=== PATIENT | female | born 1950 | race Caucasian/White ===

== ENCOUNTER 2017-12-24 14:58 | Emergency (ER) | payer MEDICARE ==
--- OUTSIDE RECORDS SUMMARY | 2017-12-24 17:32 | XMS REPORT ---
:1950 External Reference #:[id number] Author Organization [employer] Address [address] [place] [address] Phone [phone] Care Team Providers Name Role Phone Patient's Choice Care Team Information Restrooms Or Lounges Maid Unavailable Papo Villegas NP Primary Care Physician Unavailable Payers Type Date Identification Numbers Payment Provider Subscriber Commercial Effective: Policy Number: BS Yodit Patrick Escudero 2013 [id number] Expires: 2014 PayID: [id number] [address] [address] BRISA Guerra [address] [facility] Part B Expires: 2017 Policy Number: BS Facets Jaqui Escudero [id number] PayID: [id number] [address] [address] BRISA Guerra [address] [employer] Part B Policy Number: [id number] Medicare Jaqui Escudero PayID: [id number] [address] [place] [address] [employer] Part B Policy Number: [id number] [facility] Jaqui Escudero PayID: [id number] [address] [place] [address] Problems Date Description Provider Status Onset: 12/24/2014 Shavon Moody M.D. Active Family History Date Family Member(s) Problem(s) Comments General Lung Cancer Father due to Lung Cancer () Mother No Current Problems 85 Siblings 2 Sisters. Healthy. One with hypothyroidism. Social History Type Date Description Comments Lives With Occupation Retired Cigarette Use Quit 10 Years Ago Cigars Never Smoked Cigars Pipe Never Smoked A Pipe Smokeless Tobacco Never Used Smokeless Tobacco ETOH Use Currently consumes alcohol 7-10 drinks/week Smoking Patient is a former smoker Quit 2004 Daily Caffeine Consumes on average 3 cups of regular coffee per day Exercise Type/Frequency Exercises regularly Bike riding daily Golf 4-5x/week aerobic exercise 4-5x/week Allergies, Adverse Reactions, Alerts Date Description Reaction Status Severity Comments 01/15/2014 NKDA active Medications Medication Date Status Form Strength Qnty SIG Indications Ordering Provider No Active 05/31/20 Active Unknown Medications 17 Diclofenac 01/02/20 Hx Gel 1% 100gm apply 2 M25.561 Papo Villegas Sodium 17 - grams to ACTUARIAL ASSISTANT 05/17/20 affected 17 area twice daily No Active 01/16/20 Hx Dada Medications 14 - Ruparelia, 01/02/20 M.D. 17 Medications Administered in Office Medication Date Status Form Strength Qnty SIG Indications Ordering Provider Celestone 3 mg Administered Injection Freddy and 3mg 017 MD Joaquim Vital Signs Date Vital Result Comment 11/29/2017 Height 66.5 inches 5'6.50" Heart Rate 66 /min BP Systolic 108 mmHg BP Diastolic 86 mmHg Respiratory Rate 16 /min Pain Level 0 O2 % BldC Oximetry 98 % 05/31/2017 Height 66.5 inches 5'6.50" Weight 142.00 lb Heart Rate 72 /min BP Systolic Sitting 130 mmHg BP Diastolic Sitting 76 mmHg Respiratory Rate 12 /min Pain Level 0 BMI (Body Mass Index) 22.6 kg/m2 01/13/2017 Height 66.5 inches 5'6.50" Weight 146.00 lb BP Systolic 110 mmHg BP Diastolic 64 mmHg Body Temperature 98.7 F Pain Level 0 BMI (Body Mass Index) 23.2 kg/m2 01/01/2017 Height 66.5 inches 5'6.50" Weight 146.00 lb Heart Rate 70 /min BP Systolic Sitting 128 mmHg BP Diastolic Sitting 80 mmHg O2 % BldC Oximetry 99 % BMI (Body Mass Index) 23.2 kg/m2 11/30/2016 Height 66.5 inches 5'6.50" Heart Rate 86 /min BP Systolic 126 mmHg BP Diastolic 80 mmHg Respiratory Rate 12 /min no difficulties breathing Pain Level 0 O2 % BldC Oximetry 96 % 06/01/2016 Height 66.5 inches 5'6.50" Weight 142.00 lb BP Systolic Sitting 120 mmHg BP Diastolic Sitting 72 mmHg BMI (Body Mass Index) 22.6 kg/m2 01/15/2014 Weight 145.00 lb Heart Rate 78 /min BP Systolic Sitting 128 mmHg BP Diastolic Sitting 86 mmHg Results Test Date Test Result H/L Range Note Liver Function Panel 05/31/2017 Total Protein 7.2 g/dL 6.4-8.9 Albumin 4.3 g/dL 3.2-5.2 Globulin 2.9 g/dL 2-4 Albumin/Globulin Ratio 1.5 1-3 Total Bilirubin 1.10 mg/dL High 0.2-1.0 Direct Bilirubin 0.10 mg/dL 0.03-0.18 Indirect Bilirubin 1.0 mg/dL 0.3-1.0 Alkaline Phosphatase 69 U/L 34-104 Alt 15 U/L 7-52 Ast 19 U/L 13-39 Lipid Profile (Trig/Chol/HDL) 01/04/2017 Triglycerides 128 mg/dL 1 Cholesterol 262 mg/dL 2 HDL Cholesterol 70.0 mg/dL 3 LDL Cholesterol 166 mg/dL 4 Comp Metabolic Panel 01/04/2017 Sodium 139 mmol/L 133-145 Potassium 4.3 mmol/L 3.5-5.0 Chloride 104 mmol/L 101-111 Co2 Carbon Dioxide 29 mmol/L 22-32 Anion Gap 6 mmol/L 2-11 Glucose 101 mg/dL High 70-100 Blood Urea Nitrogen 15 mg/dL 6-24 Creatinine 0.70 mg/dL 0.51-0.95 BUN/Creatinine Ratio 21.4 High 8-20 Calcium 9.6 mg/dL 8.6-10.3 Total Protein 7.3 g/dL 6.4-8.9 Albumin 4.2 g/dL 3.2-5.2 Globulin 3.1 g/dL 2-4 Albumin/Globulin Ratio 1.4 1-3 Total Bilirubin 1.40 mg/dL High 0.2-1.0 Alkaline Phosphatase 74 U/L 34-104 Alt 17 U/L 7-52 Ast 20 U/L 13-39 Egfr Non- 84.2 >60 Egfr 108.3 >60 5 Connective Tissue Panel 01/04/2017 Anti-Nuclear Antibody 0.3 U 6 Cyclic Citrullinated Peptide <15.6 U 7 Interpretation See Comment 8 Laboratory test finding 01/04/2017 Rheumatoid Factor <15 IU/mL <15 9 Erythrocyte Sed Rate 25 mm/Hr 0-30 10 C Reactive Protein < 1.00 mg/L < 5.00 11 Lyme Disease Serology Negative Negative 12 1 Desirable <150 Borderline high 150-199 High 200-499 Very High >500 2 Desirable <200 Borderline high 200-239 High >239 3 Low <40 Desirable: 40-60 High: >60 4 Desirable: <100 mg/dL Near Optimal: 100-129 mg/dL Borderline High: 130-159 mg/dL High: 160-189 mg/dL Very High: >189 mg/dL 5 Because ethnic data is not always readily available, this report includes an eGFR for both -Americans and non- Americans. The National Kidney Disease Education Program (NKDEP) does not endorse the use of the MDRD equation for patients that are not between the ages of 18 and 70, are , have extremes of body size, muscle mass, or nutritional status, or are non- or non-. According to the National Kidney Foundation, irrespective of diagnosis, the stage of the disease is based on the level of kidney function: Stage Description GFR(mL/min/1.73 m(2)) 1 Kidney damage with normal or decreased GFR 90 2 Kidney damage with mild decrease in GFR 60-89 3 Moderate decrease in GFR 30-59 4 Severe decrease in GFR 15-29 5 Kidney failure <15 (or dialysis) 6 REFERENCE VALUE <=1.0 (Negative) 7 REFERENCE VALUE <20.0 (Negative) 8 Tests for antibodies to dsDNA and KRISTI antigens are not performed automatically unless the CARLOS result is > or= 3.0 U. Studies performed at [facility] indicate that positive CARLOS results <3.0 U are rarely accompanied by positive second order tests. Test Performed by: [facility] - [address] [address] 9 Test Performed by: [facility] - [address] [address] 10 FASTING 10 HOUR 11 Acute inflammation: >10.00 12 Serologic response to B. burgdorferi infection is not detected, but cannot rule out early infection during which low or undetectable antibody levels to B. burgdorferi may be present. If clinically indicated, a new serum specimen should be submitted in 7-14 days. Test Performed by: [facility] - [address] [address] Procedures Date CPT Code Description Status 05/31/2017 15060 Remove Impacted Cerumen Completed 04/28/2017 Colonoscopy Completed 01/13/2017 15656 Inject Tendon Sheath Or Ligament Aponeurosis Eg Plantar Completed Fascia 01/06/2017 Mammogram Completed 11/30/2016 53359 Remove Impacted Cerumen Completed 06/01/2016 48594 Remove Impacted Cerumen Completed 07/22/2015 46760 Remove Impacted Cerumen Completed 12/24/2014 12839 Remove Impacted Cerumen Completed 01/15/2014 82403 Remove Impacted Cerumen Completed Encounters Type Date Location Provider CPT E/M Dx Office Visit 01/13/2017 [place] [address] M65.312 1:[facility] M77.12 M18.12 M65.331 Office Visit 01/01/2017 2:00p [facility] [place] [address] M25.549 [place] M25.522 M25.561 Z71.89 Z12.11 Z12.31 Z13.220 Z13.1 Plan of Care Future Appointment(s):05/16/2018 1:30 pm - Dada Moody M.D. at [facility] AT [place]
[2017-12-24 17:44] VITALS: BP 125/81
--- NOTE | 2017-12-24 17:53 | UC ---
Knee Pain HPI - HPI Summary HPI Summary: Pt c/o left knee pain and swelling after doing jumping evan while viewing an exercise video. - History of Current Complaint Stated Complaint: LT KNEE COMP Time Seen by Provider: 12/24/17 17:36 Hx Obtained From: Patient ?: No Onset/Duration: Sudden Onset, Lasting Days, Still Present Severity Initially: Moderate Severity Currently: Moderate Pain Intensity: 2 Character: Sharp, Dull, Aching Aggravating Factor(s): Movement, Weight Bearing, Prolonged Standing, Stairs Alleviating Factor(s): Rest, Position Associated Signs And Symptoms: Positive: Swelling Able to Bear Weight: Yes - Risk Factors Septic Arthritis Risk Factor: Negative Gout Risk Factor: Age ^ 42 - Allergies/Home Medications Allergies/Adverse Reactions: Allergies Allergy/AdvReac Type Severity Reaction Status Date / Time No Known Allergies Allergy Verified 02/06/16 13:45 Home Medications: Home Medications Naproxen Sodium [Naproxen 220 mg] 440 mg PO DAILY 12/24/17 [History Confirmed ] PMH/Surg Hx/FS Hx/Imm Hx Previously Healthy: Yes - Surgical History Surgical History: Yes Surgery Procedure, Year, and Place: CLOSURE RIGHT GREATER SAPHENOUS [address] [facility] [place] - Family History Family History: denies cardio-vascular disease in family - Social History Occupation: Retired Lives: With Family Alcohol Use: Daily Alcohol Amount: GLASS WINE/PER NIGHT Substance Use Type: None Smoking Status (MU): Former Smoker Length of Time of Smoking/Using Tobacco: 25 YRS Have You Smoked in the Last Year: No When Did the Patient Quit Smoking/Using Tobacco: 2004 Review of Systems Constitutional: Negative Skin: Negative Eyes: Negative ENT: Negative Respiratory: Negative Cardiovascular: Negative Gastrointestinal: Negative Genitourinary: Negative Motor: Negative Neurovascular: Negative Musculoskeletal: Arthralgia - left knee, Edema - left knee, Myalgia - left knee Neurological: Negative Psychological: Negative Is Patient Immunocompromised?: No All Other Systems Reviewed And Are Negative: Yes Physical Exam Triage Information Reviewed: Yes Appearance: Well-Appearing Vital Signs: Initial Vital Signs Temp 100.0 F 12/24/17 17:36 Pulse 76 12/24/17 17:36 Resp 16 12/24/17 17:36 BP 125/81 12/24/17 17:36 Pulse Ox 100 12/24/17 17:36 Vital Signs Reviewed: Yes Eye Exam: Normal ENT: Positive: Hearing grossly normal Dental Exam: Normal Neck exam: Normal Respiratory: Positive: No respiratory distress Musculoskeletal: Positive: Edema @ - generalized mild edema, non tender bakers cyst left posterior knee Neurological Exam: Normal Psychological Exam: Normal Skin Exam: Normal Diagnostics - Radiology No standard instances Radiology Interpretation Completed By: Radiologist - IMPRESSION: 1. SMALL JOINT EFFUSION. 2. MILD OSTEOARTHRITIC CHANGE. Knee Pain Course/Dx - Differential Dx/Diagnosis Differential Diagnosis/HQI/PQRI: Bursitis, Sprain, Strain Provider Diagnoses: joint effusion left knee Discharge - Sign-Out/Discharge Documenting (check all that apply): Patient Departure - Discharge Plan Condition: Stable Disposition: HOME Patient Education Materials: Swollen Knee Joint (ED) Referrals: Papo Villegas NP [Primary Care Provider] - Jam Yancey MD [Medical Doctor] - - Billing Disposition and Condition Condition: STABLE Disposition: Home
--- NOTE | 2017-12-24 19:04 | RAD ---
INDICATION: Left knee pain and swelling. TECHNIQUE: 4 views of the left knee were obtained. FINDINGS: The bones are normal alignment. There is a small joint effusion present. No fracture is seen. There is mild osteoarthritic change in the patellofemoral compartment. IMPRESSION: 1. SMALL JOINT EFFUSION. 2. MILD OSTEOARTHRITIC CHANGE.
== END 2017-12-24 19:18 | disposition home or self-care (01) ==
LOC: UCCORT 14:58
DX: M25.462 Effusion, left knee (principal); M25.562 Pain in left knee; Z87.891 Personal history of nicotine dependence
CPT/HCPCS: 99211; G0463